=== PATIENT | male | born 1955 ===

== ENCOUNTER → 2024-03-03 | Outpatient (CLI) | payer OTHER, MEDICARE | LOC: PNWHC3 08:15 | PROVIDERS: ATTEND Specialist | DX: M51.36 Other intervertebral disc degeneration, lumbar region (principal) | CPT/HCPCS: 99211 ==

== ENCOUNTER 2024-03-13 06:22 | Day surgery (SDC) | payer OTHER, MEDICARE ==
[2024-03-13] MEDS ORDERED: methylPREDNISolone ACETATE 80 MG/ML 1 ML VIAL ONE (07:51)
[2024-03-13] MEDS ORDERED: ROPIVACAINE 5MG/ML 20ML VIAL ONE (07:51)
[2024-03-13] MEDS ORDERED: IOPAMIDOL M300 15ML VIAL ONE (07:51)
== END 2024-03-13 08:40 ==
LOC: ORPAIN 06:22
PROVIDERS: ATTEND Pain Medicine Interventional Pain Medicine
DX: M47.26 Other spondylosis with radiculopathy, lumbar region (principal)
CPT/HCPCS: 62323

== ENCOUNTER → 2024-04-02 | Outpatient (CLI) | payer OTHER, MEDICARE ==
[2024-04-02 10:32] VITALS: BP 140/81; PULSE 79; RESP 16; TEMP 97.8
--- NOTE | 2024-04-02 15:21 | P.PAINPG ---
PQRS Measure Charge Sheet Comment: A 68 yr old male with a history of severe and chronic LBP secondary to radiculopathy spondylosis and facet arthropathy without myelopathy presents today for evaluation s/p R paramedian SUMMER L4-L5 #1. Pt states he experienced 80% pain relief x 3 wks s/p procedure. Pain level is provoked at 3 /10 in intensity, intermittent, predominantly axial, localized in the lumbar spine, sharp in character w occasional shooting towards R hip. Pain is provoked by over activity. Pain is alleviated with physician guided HEP ever morning since Dec 2023, injections, medications, topical, repositioning and rest. Interventional pain procedures completed include SUMMER L4-L5 x1 Patient is currently on Mobic, Tyl, Lidoderm Patient denies any side effects of the medication(s), denies excessive drowsiness or sleepiness, denies suicidal ideation and reports that the current pain medication is helping to control the pain and improve activities of daily living. Patient denies any motor or sensory deficits. Patient denies any fever or night sweats, denies any change in the bowel movements or urination. Physical Examination: -Constitutional: Cooperative. Not in acute distress . - Neurologic: Cranial nerve II to XII intact. No focal neurological deficits. - Psychatric: Alert & oriented x 3. Matching mood & appropriate affect. Judgment and insight intact. - Musculoskeletal: Cervical spine: Muscle bulk/ tone/ strength in the bilateral upper extremities normal Vertebral body tenderness to palpation over Spurling test positive Distraction test positive Facet loading test positive TTP Thoracic spine Muscle bulk / tone/ strength in the bilateral paraspinal muscles normal Vertebral body tender to palpation over Facet loading test positive TTP Lumbar spine: Motor bulk/ tone/ strength lower extremities , thigh and legs : 5/5 Deep tendon reflexes : Normal Knee Jerk. Normal Ankle Jerk . Vertebral body tenderness to palpation over Gregoiro Test positive Lumbar Facet Loading Test positive Straight Leg Raise: positive at 30 degrees right side/ left side Gaenslen's Test positive Sacral spine : Severe tenderness over the Sacroiliac joint: right side / left side Range of motion: Flexion of the lumbar spine <60 degrees Range of motion: Extension of the lumbar spine <20 degrees Gaenslen's Test positive right side / left side Mary test: positive right side / left side Thigh Thrust Test positive right side / left side Sacral Thrust Test positive right side / left side Assessment and plan: Chronic LBP secondary to lumbar radiculopathy, spondylosis with facet arthropathy without myelopathy Will manage residual pain and may RTC on an as needed basis I have spent less than 30 minutes on patient care today. Dr Mccain was available by phone for the evaluation of this patient. The time was used to review the medical records including relevant urine studies and Prescription history (MAPs), review of the available imaging, evaluation and examination of the patient, coordination of care with the medical staff and if applicable referring physicians, as well as creation of the medical record Controlled Substance Measures - Controlled Substance Measures Is patient prescribed a controlled substance at discharge?: No
== END ==
LOC: PNWHC3 10:03
PROVIDERS: ATTEND Specialist
DX: M47.26 Other spondylosis with radiculopathy, lumbar region (principal)
CPT/HCPCS: 99211